=== PATIENT | female | born 1980 | race Two or more races ===

== ENCOUNTER → 2024-05-30 | Outpatient (CLI) | payer MEDICAID, SELFPAY ==
--- NOTE | 2024-05-30 14:15 | XR_ITS ---
Examination: Breast ultrasound, unilateral, left complete Date and time of exam: May 30, 2024 1455 hours INDICATIONS: Outside mammogram September 07, 2023 17 mm mass lower outer left breast Technique: Real-time siu scale ultrasonographic imaging performed left breast including all 4 quadrants as well as nipple retroareolar and axillary region. Findings: 3:00 cyst 4 x 4 by 5 mm 4:00 cyst 4 x 2 x 4 mm No solid nodules IMPRESSION: BI-RADS Category 2: Benign findings
--- NOTE | 2024-05-30 14:45 | XR_ITS ---
Examination: Diagnostic digital mammography, unilateral, left Computer aided detection 3-D breast Tomosynthesis, unilateral Date and time of exam: May 30, 2024 at 1504 hours INDICATIONS: Outside mammogram February 16, 2024 17 mm mass outer lower quadrant left breast Technique: Nonmagnified MLO, CC views of the left breast have been obtained, reconstructed from 3-D Tomosynthesis images. R2 computer aided detection program utilized for evaluation of suspicious masses and/or abnormal calcifications. 3-D Tomosynthesis images obtained. Findings: Scattered areas of fibroglandular density 4 mm circumscribed nodule 3:00 position left breast corresponding to benign 3:00 cyst on today's ultrasound Impression: BI-RADS category 2: Benign findings Return to yearly follow-up mammography
== END | disposition home or self-care (01) ==
LOC: CDIM 14:36
PROVIDERS: PCP Registered Nurse; Referring Provider Registered Nurse; Visit Provider Registered Nurse
DX: R92.322 Mammographic fibroglandular density, left breast (principal); N60.02 Solitary cyst of left breast
CPT/HCPCS: 76641; 77061; 77065; G0279